=== PATIENT | female | born 1955 | race Caucasian/White ===

== ENCOUNTER → 2019-05-13 | Day surgery (SDC) | payer OTHER ==
--- NOTE | 2019-05-14 11:16 | PATH ---
Surgical Pathology Report Patient Name: LIVE PICKENS [facility]. Rec. #: [id number] /Age/Gender: 1955 (Age: 64) / F Account: [id number] Location: [facility] Taken: 05/13/2019 Received: 05/13/2019 Reported: 05/14/2019 Physicians: José Pearl M.D. Specimen(s) Received A: RIGHT BREAST SPECIMEN - WITH CALCIFICATIONS B: RIGHT BREAST SPECIMEN - WITHOUT CALCIFICATIONS Clinical History Nonpalpable lesion Mammographic findings: Suspicious Final Diagnosis A. BREAST, RIGHT, WITH CALCIFICATIONS, STEREOTACTIC CORE BIOPSY: BENIGN BREAST PARENCHYMA WITH STROMAL FIBROSIS, FOCAL USUAL DUCTAL HYPERPLASIA, AND ASSOCIATED MICROCALCIFICATIONS. B. BREAST, RIGHT, WITHOUT CALCIFICATIONS, STEREOTACTIC CORE BIOPSY: BENIGN BREAST PARENCHYMA WITH STROMAL FIBROSIS. Electronically Signed Stephanie Eason M.D. Gross Description A. Received in formalin labeled "right breast with calcifications," is a 2.2 x 2.1 x 0.3 cm aggregate of multiple bear-yellow, irregular to cylindrical portions of fibroadipose tissue. The formalin is filtered and the specimen is entirely submitted in one cassette. B. Received in formalin labeled "right breast without calcifications," is a 2.3 x 2.0 x 0.3 cm aggregate of multiple bear-yellow, irregular to cylindrical portions of fibroadipose tissue. The formalin is filtered and the specimen is entirely submitted in one cassette. Time to formalin fixation: 5 minutes Total formalin fixation time: Approximately 7 hours. /05/13/2019 saudi05/13/2019
== END | disposition home or self-care (01) ==
LOC: FMAMMOTONE 09:56
PROVIDERS: ATTEND Surgery
PROC: 0HBT3ZX Excision of Right Breast, Percutaneous Approach, Diagnostic (ICD-10-PCS; principal; 2019-05-13)
DX: N60.31 Fibrosclerosis of right breast (principal); N60.81 Other benign mammary dysplasias of right breast; N64.89 Other specified disorders of breast; R92.1 Mammographic calcification found on diagnostic imaging of breast
CPT/HCPCS: 19081; 87899; 88305-TC; A4648

== ENCOUNTER 2019-11-18 13:33 | Inpatient (IN) | payer OTHER ==
[2019-11-18 14:33] LABS: EOS % 3.2 % (0-4.5); HEMATOCRIT 35.9 % (32.4-45.2); HEMOGLOBIN 12.4 GM/dL (10.7-15.3); MCH 31.3 pg (25.7-33.7); MCHC 34.6 g/dl (32.0-36.0); MEAN CELL VOLUME 90.6 fl (80-96); MEAN PLT VOLUME 8.2 fl (7.5-11.1); MONO % 7.5 % (3.8-10.2); NEUT % 63.3 % (42.8-82.8); PLATELET COUNT 126 K/MM3 (134-434); RBC 3.97 M/mm3 (3.60-5.2); WHITE BLOOD COUNT 5.6 K/mm3 (4.0-10.0)
--- NOTE | 2019-11-18 14:47 | PDOC ---
History of Present Illness - General Chief Complaint: CVA/TIA Stated Complaint: CVA Time Seen by Provider: 11/18/19 13:51 - History of Present Illness Initial Comments: 11/18/19 15:14 The patient is a 64 year old female with a history of HTn, HLD, DM, CVA, Dementia who presents for evaluation of altered mental status. Per the patient' s NH, the patient's last known well was yesterday evening and awoke this morning more lethargic than usual. They noted the patient being more non- responsive and generally week and confused prompting her presentation to the ED for further evaluation. Per the patient's daughter, the patient is usually conversant. ROS is unobtainable due to the patient's mental status. tPA Exclusion checklist 3-4.5h - Time Elapsed Date last known well: 11/17/19 Time last known well: 21:00 Elaspsed time: Day(s) and 18 Hour(s) and 36 Minutes - Thrombolytic Therapy Candidate Is patient eligible for thrombolytic therapy: No - Ineligibility reason(s) Reasons No tPA given: Outside of window - delayed arrival NIH Stroke Scale - Last Known Well Date/Time & Onset Date Last Known Well: 11/17/19 Time Last Known Well: 21:00 - Initial Evaluation Level of consciousness: Alert Ask patient the month and their age: Both incorrect Ask patient to open & close eyes; make fist and let go: Both incorrect Best gaze (horizontal eye movement): Normal Visual field testing: No visual field loss Facial paresis (Show teeth/raise eyebrows/close eyes tight): Normal symmetrical movement Motor Function: Left Arm: Normal Motor Function: Right Arm: Normal (extends arm 90 (or 45) degrees for 10 seconds without drift Motor Function: Left Leg: Normal (extends leg 30 degrees for 5 seconds without drift) Motor Function: Right Leg: Normal (extends leg 30 degrees for 5 seconds without drift) Limb Ataxia: No ataxia Sensory(Use pinprick test arms,legs,trunk,face/side to side): Normal Best language (Describe picture, name items, read sentences): No Aphasia Dysarthria (read several words): Normal articulation Extinction and Inattention: No abnormality - Total Score NIH Stroke Scale Score: 4 Past History - Past Medical History Allergies/Adverse Reactions: Allergies Allergy/AdvReac Type Severity Reaction Status Date / Time gabapentin Allergy Verified 11/18/19 13:41 Gadolinium-Containing Allergy Verified 11/18/19 13:41 Contrast Medi shellfish derived Allergy Verified 11/18/19 13:41 Anemia: Yes (IRON) Cardiac Disorders: Yes COPD: No Diabetes: Yes GI Disorders: Yes (GERD, CONSTIPATUION) HTN: Yes Psychiatric Problems: Yes - Psycho Social/Smoking Cessation Hx Smoking History: Smoker current status UNK Have you smoked in the past 12 months: No Information on smoking cessation initiated: No Hx Alcohol Use: No Drug/Substance Use Hx: No Review of Systems - Review of Systems Able to Perform ROS?: No (AMS) *Physical Exam - Vital Signs Last Vital Signs Temp Pulse Resp BP Pulse Ox 98.0 F 69 13 116/73 99 11/18/19 13:35 11/18/19 13:35 11/18/19 13:35 11/18/19 13:35 11/18/19 13:35 - Physical Exam 11/18/19 15:17 General Appearance: Nourished. No Apparent Distress HEENT: EOMI, ANA. No Pharyngeal Erythema, Tonsillar Exudate, Tonsillar Erythema Neck: No Cervical Lymphadenopathy Respiratory/Chest: Lungs Clear, Normal Breath Sounds. No Crackles, Rales, Rhonchi, Wheezing Cardiovascular: Regular Rhythm, Regular Rate. No Murmur, Gallops, Rubs Gastrointestinal/Abdominal: Normal Bowel Sounds, Soft. No Guarding, Rebound, Tenderness Musculoskeletal: No CVA Tenderness Extremity: Normal Capillary Refill Integumentary: Normal Color, Dry, Warm Neurologic: Alert, Moving all extremities, Moaning on exam, unable to follow commands. Responds to painful stimuli. ED Treatment Course - LABORATORY CBC & Chemistry Diagram: 11/18/19 14:13 11/18/19 14:13 - ADDITIONAL ORDERS Additional order review: 11/18/19 14:13 RBC 3.97 MCV 90.6 MCHC 34.6 RDW 14.0 MPV 8.2 Neutrophils % 63.3 Lymphocytes % 25.0 Monocytes % 7.5 Eosinophils % 3.2 Basophils % 1.0 - RADIOLOGY Radiology Studies Ordered: Category Date Time Status HEAD CT (STROKE) [CT] Stat CT Scan 11/18/19 13:40 Completed CHEST X-RAY PORTABLE* [RAD] Stat Radiology 11/18/19 13:40 Completed Medical Decision Making - Medical Decision Making 11/18/19 15:23 The patient is a 64 year old female with a history of HTn, HLD, DM, CVA, Dementia who presents for evaluation of altered mental status. Given the patient's history and physical exam, we will obtain a cbc, cmp, troponin, ua, chest plain film, head CT to evaluate further. We will consult with neurology and continue to monitor and reassess while here in the ED. 11/18/19 15:36 CBC, cmp, troponin were unremarkable. Head CT did not demonstrate any acute process as read by our radiologist. Chest plain film did not demonstrate any acute process as read by our radiologist. We discussed the case with Dr. Cortez with neurology who has been made aware of the patient and will evaluate. The patient will require admission for further monitoring and management. Discharge - Discharge Information Problems reviewed: Yes Clinical Impression/Diagnosis: Transient ischemic attack Altered mental status Qualifiers: Altered mental status type: unspecified Qualified Code(s): R41.82 - Altered mental status, unspecified Condition: Stable - Admission Yes - Follow up/Referral Referrals: Cheikh Uriarte [Primary Care Provider] - - Patient Discharge Instructions - Post Discharge Activity
[2019-11-18 15:00] LABS: INR 1.18 (0.83-1.09)
[2019-11-18 15:03] LABS: ACTIVATED PTT 35.5 SECONDS (25.2-36.5)
[2019-11-18 15:06] LABS: ALBUMIN 3.5 g/dl (3.4-5.0); BILIRUBIN,TOTAL 0.8 mg/dL (0.2-1); BLOOD UREA NITROGEN 14.1 mg/dL (7-18); CALCIUM 9.6 mg/dL (8.5-10.1); CREATININE 0.7 mg/dL (0.55-1.3); POTASSIUM 3.9 mmol/L (3.5-5.1); TOT PROT 7.3 g/dl (6.4-8.2)
--- NOTE | 2019-11-18 15:15 | EKG ---
Test Reason : Blood Pressure : / mmHG Vent. Rate : 069 BPM Atrial Rate : 069 BPM P-R Int : 148 ms QRS Dur : 070 ms QT Int : 408 ms P-R-T Axes : 012 061 031 degrees QTc Int : 437 ms POOR DATA QUALITY, INTERPRETATION MAY BE ADVERSELY AFFECTED NORMAL SINUS RHYTHM NORMAL ECG NO PREVIOUS ECGS AVAILABLE Confirmed by DHRUV MORALES MD ([id number]) on 11/18/2019 3:14:29 PM Referred By: Confirmed By:DHRUV MORALES MD
--- NOTE | 2019-11-18 15:21 | PDOC ---
Documentation entered by Alma Reno SCRIBE, acting as scribe for Boni Garcia MD. Boni Garcia MD: This documentation has been prepared by the Shadia antoine Brenda, SCRIBE, under my direction and personally reviewed by me in its entirety. I confirm that the documentation accurately reflects all work, treatment, procedures, and medical decision making performed by me. Attending Attestation - Resident Resident Name: Adolfo Olmos - ED Attending Attestation I have performed the following: I have examined & evaluated the patient, The case was reviewed & discussed with the resident, I agree w/resident's findings & plan, Exceptions are as noted - HPI HPI: 11/18/19 15:49 64 F with h/o HTN, HLD, DM, CVA, dementia, presenting with AMS. Pt's last known normal was last night before bedtime. This morning, pt was found to be lethargic and confused. At physical therapy today, she could not participate because she would not follow commands. Pt unable to contribute any history herself. Per pt's daughter, pt is typically awake, alert, and conversant at baseline. - Physicial Exam PE: 11/18/19 15:50 See resident exam - Medical Decision Making 11/18/19 15:51 64 F with AMS. Will evaluate for infectious/metabolic process. Pt afebrile without any infectious signs or symptoms. Possible CVA. Pt is outside tPA window. - head CT - Labs - CXR, UA - Admit NIH Stroke Scale - Last Known Well Date/Time & Onset Date Last Known Well: 11/17/19 Time Last Known Well: 22:00 - Initial Evaluation Level of consciousness: Alert Ask patient the month and their age: Both incorrect Ask patient to open & close eyes; make fist and let go: Both incorrect Best gaze (horizontal eye movement): Normal Visual field testing: No visual field loss Facial paresis (Show teeth/raise eyebrows/close eyes tight): Normal symmetrical movement Motor Function: Left Arm: Normal Motor Function: Right Arm: Normal (extends arm 90 (or 45) degrees for 10 seconds without drift Motor Function: Left Leg: Normal (extends leg 30 degrees for 5 seconds without drift) Motor Function: Right Leg: Normal (extends leg 30 degrees for 5 seconds without drift) Limb Ataxia: No ataxia Sensory(Use pinprick test arms,legs,trunk,face/side to side): Normal Best language (Describe picture, name items, read sentences): No Aphasia Dysarthria (read several words): Normal articulation Extinction and Inattention: No abnormality - Total Score NIH Stroke Scale Score: 4
[2019-11-18 16:06] LABS: PH,URINE 7.5 (5.0-8.0); URINE APPEARANCE CLEAR; URINE BILIRUBIN NEGATIVE (NEGATIVE); URINE COLOR YELLOW; URINE GLUCOSE (UA) NEGATIVE (NEGATIVE); URINE KETONE NEGATIVE (NEGATIVE); URINE LEUK ESTERASE NEGATIVE (NEGATIVE); URINE NITRITE NEGATIVE (NEGATIVE); URINE PROTEIN NEGATIVE (NEGATIVE)
[2019-11-19 00:06] VITALS: BMI 32.9
[2019-11-19 07:03] LABS: HEMATOCRIT 31.9 % (32.4-45.2); HEMOGLOBIN 11.3 GM/dL (10.7-15.3); MCH 31.6 pg (25.7-33.7); MCHC 35.4 g/dl (32.0-36.0); MEAN CELL VOLUME 89.2 fl (80-96); MEAN PLT VOLUME 8.6 fl (7.5-11.1); PLATELET COUNT 113 K/MM3 (134-434); RBC 3.58 M/mm3 (3.60-5.2); RDW 13.8 % (11.6-15.6); WHITE BLOOD COUNT 5.1 K/mm3 (4.0-10.0)
[2019-11-19 07:42] LABS: BLOOD UREA NITROGEN 17.3 mg/dL (7-18); CALCIUM 9.2 mg/dL (8.5-10.1); CREATININE 0.7 mg/dL (0.55-1.3); MAGNESIUM 1.8 mg/dL (1.8-2.4); PHOSPHOROUS 3.6 mg/dL (2.5-4.9); POTASSIUM 3.6 mmol/L (3.5-5.1)
[2019-11-19] MEDS: HEPARIN NA (PORCINE) 5,000 UNITS/ML 1ML VIAL SQ SCH ×2 (10:14→22:24)
--- NOTE | 2019-11-19 11:20 | HP ---
Admitting History and Physical - Primary Care Physician PCP: Spencer Lacey - Admission Chief Complaint: AMS History of Present Illness: - History of Present Illness Initial Comments: 11/18/19 15:14 The patient is a 64 year old female with a history of HTn, HLD, DM, CVA, Dementia who presents for evaluation of altered mental status. Per the patient' s NH, the patient's last known well was yesterday evening and awoke this morning more lethargic than usual. They noted the patient being more non- responsive and generally week and confused prompting her presentation to the ED for further evaluation. Per the patient's daughter, the patient is usually conversant. ROS is unobtainable due to the patient's mental status. Pt examined in Telemetry Awake now- does not remember why she is in the hospital She knows who the president is, year is 2001 No complaints Able to move all extremities walks with a walker at baseline spoke with sister she had similar history couple of months ago - she was in [facility] at that time . Told the sister she had a mini stroke History Source: Patient, Transfer Record Limitations to Obtaining History: Poor Historian - Past Medical History Cardiovascular: Yes: HTN, Hyperlipdemia Hepatobiliary: Yes: Hepatitis C (s/p TIPS) ...: No Psych: Yes: Other (dementia) Endocrine: Yes: Diabetes Mellitus - Advance Directives Advance Directives: Yes: DNR - Smoking History Smoking history: Smoker current status UNK Have you smoked in the past 12 months: No - Alcohol/Substance Use Hx Alcohol Use: No Home Medications - Allergies Allergies/Adverse Reactions: Allergies Allergy/AdvReac Type Severity Reaction Status Date / Time gabapentin Allergy Verified 11/18/19 13:41 Gadolinium-Containing Allergy Verified 11/18/19 13:41 Contrast Medi shellfish derived Allergy Verified 11/18/19 13:41 - Home Medications Home Medications: Ambulatory Orders Acetaminophen 325 mg PO TID 11/18/19 Aripiprazole [Abilify] 20 mg PO DAILY 11/18/19 Atorvastatin Ca [Lipitor] 20 mg PO HS 11/18/19 Famotidine 20 mg PO DAILY 11/18/19 Insulin Glargine,Hum.rec.anlog [Basaglar Kwikpen U-100] 40 unit SQ DAILY Insulin Lispro [Admelog] 2 unit SQ TID 11/18/19 Melatonin 10 mg PO DAILY 11/18/19 Oseltamivir Phosphate [Tamiflu] 75 mg PO DAILY 11/18/19 Polyethylene Glycol 3350 [Miralax 119 gm Btl -] 19 gr PO DAILY 11/18/19 Quetiapine Fumarate [Seroquel -] 25 mg PO HS 11/18/19 Tamiflu - 75 mg PO DAILY 11/18/19 Review of Systems - Review of Systems Constitutional: reports: Lethargy. denies: Chills, Fever, Weakness Physical Examination Vital Signs: Vital Signs Temperature 98.7 F 11/19/19 10:00 Pulse Rate 64 11/19/19 10:00 Respiratory Rate 18 11/19/19 10:00 Blood Pressure 117/62 11/19/19 10:00 O2 Sat by Pulse Oximetry (%) 96 11/18/19 23:20 Constitutional: Yes: No Distress, Calm Cardiovascular: Yes: Regular Rate and Rhythm Respiratory: Yes: CTA Bilaterally Gastrointestinal: Yes: Normal Bowel Sounds, Soft, Abdomen, Obese. No: Tenderness Edema: No Neurological: Yes: Alert, Confusion. No: Numbness, Tremors ...Motor Strength: WNL Labs: CBC, BMP 11/19/19 05:40 11/19/19 05:40 Imaging - Results Chest X-ray: Image Reviewed (no infiltrate) Cat Scan: Report Reviewed (negative) EKG: Image Reviewed (NSR) Problem List - Problems (1) Altered mental status Code(s): R41.82 - ALTERED MENTAL STATUS, UNSPECIFIED Qualifiers: Altered mental status type: unspecified Qualified Code(s): R41.82 - Altered mental status, unspecified (2) Transient ischemic attack Code(s): G45.9 - TRANSIENT CEREBRAL ISCHEMIC ATTACK, UNSPECIFIED (3) Hep C w/o coma, chronic Code(s): B18.2 - CHRONIC VIRAL HEPATITIS C (4) Liver mass Code(s): R16.0 - HEPATOMEGALY, NOT ELSEWHERE CLASSIFIED Assessment/Plan PLAN Carotid doppler negative hold off psych meds h/o schizoaffective disorder Neurology consult Brain MRI and MRA ordered Pt had recent MRCP done here in [facility]-- shows possible liver mass- suspicious for HCC- she had AFP in NH - 2.6 GI consult check ammonia levels spoke with sister who is POA swallow eval PT eval
[2019-11-19] MEDS: ASPIRIN 81 MG CHEWABLE TABLETS PO SCH (11:46)
--- NOTE | 2019-11-19 11:46 | CONSULT ---
Admitting History and Physical - Primary Care Physician PCP: Catherine Alas - Admission History of Present Illness: 64 year old female with a history of HTn, HLD, DM, CVA, Dementia who presents for evaluation of altered mental status. Per the patient's NH, the patient's last known well was yesterday evening and awoke this morning more lethargic than usual. They noted the patient being more non-responsive and generally week and confused prompting her presentation to the ED for further evaluation.The patient is usually conversant. Selected Entries 11/18/19 11/18/19 11/18/19 13:35 14:30 17:00 Breakfast Temperature 98.0 F 98.0 F 97.8 F 11/18/19 11/19/19 11/19/19 23:00 02:00 06:00 Breakfast Temperature 98.1 F 97.9 F 98.2 F 11/19/19 11/19/19 10:00 11:07 Breakfast NPO Temperature 98.7 F Laboratory Tests 11/18/19 11/19/19 14:13 05:40 WBC 5.6 5.1 Pt's sister served as informant. Pt with h/o Bipolar disorder, had been admitted to [facility] in past, also with h/o sleep diorder, and drug abuse growing up. She is very impulsive, with falls in NH fromj getting up to fast. She has choked on solids and is observed meal time at [facility]. Pt on reg diet/no bread/thin liquids in NH History Source: Family Member, Medical Record Limitations to Obtaining History: Clinical Condition - Past Medical History ...: No - Advance Directives Advance Directives: Yes: DNR - Smoking History Smoking history: Smoker current status UNK Have you smoked in the past 12 months: No - Alcohol/Substance Use Hx Alcohol Use: No History - Admission Reason For Visit: TRANSIENT ISCHEMIC ATTACK,AMS - Diagnostics X-ray: Report Reviewed CT Scan: Report Reviewed MRI: Pending - General Mental Status: Alert and Oriented (errors but self corrects when questioned eg "[facility].... [facility]?"), Awake and Alert, Able to Follow Commands, Forgetful Attention: Intact Ability to Follow Directions: Good Head/Neck Control: Good - Hearing Hearing: Normal Hearing Aide: No With Patient: No Speech Evaluation - Communication Primary Language: NEPALI Communication: Yes: Within Normal Limits (back to baseline, spontraneous recovery), Simple Responses, Aphasia (upon admission, not speaking) - Speech Production Able to Make Needs Known: Yes: WNL Intelligibility: Yes: WNL - Speech Characteristics Voice Loudness: Normal Voice Pitch: Yes: Normal Voice Phonatory-based Quality: Yes: Normal Speech Pattern: Normal Speech Clarity: < 100% Nasal Resonance: Normal Articulation: Yes: Precise - Language/Auditory Comprehension Follows: Yes: 1 Stage Simple Commands Observation: Able to respond to yes/no queries: Yes, Yes/No Confusion: Yes, Benefits from Repetiton: Yes - Language/Verbal Expression Able to Respond to Simple Queries: Yes: WNL Able to Communicate Wants and Needs: Yes: WNL Functional Communication Status: Yes: WNL - Swallow Evaluation/Bedside Assessment Current Nutritional Intake: NPO Oral Secretions: Yes: WFL Dentition: Yes: Edentulous (lower), Dental Appliance Upper Facial Symmetry at Rest: Symmetrical Facial Symmetry on Retraction: Symmetrical Facial Movement: Controlled Jaw Position: Open at Rest Against Resistance Opening: Normal Against Resistance Closing: Normal Pucker Lips: Normal Smile: Normal Lingual Movement: Normal, Symmetric Lingual Speed of Movement: Normal Lingual Movement Strgth Against Opposition: Reduced Lingual Movement Characteristics: Normal Velopharyngeal Movement: Normal Laryngeal Elevation: WFL Laryngeal Movement: Able to Palpate Rate of Intake: Impulsive (Popped entire cracker in her mouth which I quickly recovered.) Bolus Size: Large Labial Seal: WFL Chewing: WFL (Labored mastication, slow oral movement, no lower dentition, does not masticate bolus fully) A-P Transit: WFL Pocketing: None Timing of Swallow: WFL Coughing/Throat Clear: No ((-) 3 oz water test) Change in Voice: No Recommendations - Speech Evaluation, Impression/Plan Impression: Language function suspected back to baseline. Labored mastication with h/o impulsive self feeding with choking incidents at NH - Disposition Discharge to: Jail Facility - Dysphagia Impressions/Plan Swallowing Skills: Impaired Dysphagia Impressions: Mild Impairment, Risk of Aspiration (choking risk on solids) *Silent aspiration: cannot be R/O at bedside Dysphagia Treatment Plan: Small Bites, Chin Tuck/Down, Clear Pocket Food, Trial Feedings, Safe Rate, 1/2 tsp. at a time, Elevate HOB during feed, Other ( Constant supervision with meals.Reduce bolus size and rate of intake) Recommendations: Modified Barium Swallow (if cough, congestion, fever) - Recommendations Diet Consistency: Other (Chopped diet, no bread, cracker,salad, apples, grapes) Liquids: Thin Liquids
[2019-11-19] MEDS: FAMOTIDINE 20 MG TABLET PO SCH (11:47)
--- NOTE | 2019-11-19 12:22 | CON.NEURO ---
Consult Consult Specialty:: Renard Referred by:: Bishop - History of Present Illness History of Present Illness: 64 years old right-handed female patient with multiple medical problems including high cholesterol hypertension history of dementia and questionable CVA in the past lives in a care home was found with altered sensorium patient came into the emergency room stroke protocol was initiated patient was not a candidate according to the emergency room for any thrombolyze his CAT scan of the head with mild motion artifact but did not reveal any evidence of acute pathology. Patient was admitted to telemetry for further treatment and management. Since admission according to the nursing staff patient with no seizure-like activity patient remains lethargic with difficulty cooperation with a history intake. Most of the history was obtained from the H&P and the transfer sheet and emergency room notes. No report of any recent travel no report of any recent head trauma. - History Source History Provided By: Medical Record Limitations to Obtaining History: Clinical Condition - Past Medical History ...: No - Alcohol/Substance Use Hx Alcohol Use: No - Smoking History Smoking history: Smoker current status UNK Have you smoked in the past 12 months: No Home Medications - Allergies Allergies/Adverse Reactions: Allergies Allergy/AdvReac Type Severity Reaction Status Date / Time gabapentin Allergy Verified 11/18/19 13:41 Gadolinium-Containing Allergy Verified 11/18/19 13:41 Contrast Medi shellfish derived Allergy Verified 11/18/19 13:41 - Home Medications Home Medications: Ambulatory Orders Acetaminophen 325 mg PO TID 11/18/19 Aripiprazole [Abilify] 20 mg PO DAILY 11/18/19 Atorvastatin Ca [Lipitor] 20 mg PO HS 11/18/19 Famotidine 20 mg PO DAILY 11/18/19 Insulin Glargine,Hum.rec.anlog [Basaglar Kwikpen U-100] 40 unit SQ DAILY Insulin Lispro [Admelog] 2 unit SQ TID 11/18/19 Melatonin 10 mg PO DAILY 11/18/19 Oseltamivir Phosphate [Tamiflu] 75 mg PO DAILY 11/18/19 Polyethylene Glycol 3350 [Miralax 119 gm Btl -] 19 gr PO DAILY 11/18/19 Quetiapine Fumarate [Seroquel -] 25 mg PO HS 11/18/19 Tamiflu - 75 mg PO DAILY 11/18/19 Family Medical History Family History: Unable to Obtain Review of Systems Unable to obtain ROS, reason: unable to obtain Physical Exam-Neuro Vital Signs: Vital Signs Temperature 98.7 F 11/19/19 10:00 Pulse Rate 64 11/19/19 10:00 Respiratory Rate 18 11/19/19 10:00 Blood Pressure 117/62 11/19/19 10:00 O2 Sat by Pulse Oximetry (%) 96 11/18/19 23:20 Constitutional: Yes: Well Nourished Neck: Yes: WNL Cardiovascular: Yes: WNL Labs: CBC, BMP 11/19/19 05:40 11/19/19 05:40 INR, PTT INR 1.18 (0.83-1.09) H 11/18/19 14:13 - Neuro Exam Level Of Consciousness: Yes: Alert, Obtunded Eyes: Yes: PERRLA Speech: Other Dominant Hand: Right Cranial Nerves II-XII Intact: Yes Gag: Present DTR's: 1+ Left Bicep, 1+ Right Bicep, 1+ Left Brachioradialis, 1+ Right Brachioradialis Response to light touch: Abnormal Response to pain prick: Abnormal Motor Strength: 2/5: Left Arm, Right Arm, Left Leg, Right Leg Imaging - Results Cat Scan: Image Reviewed Problem List - Problems (1) Altered mental status Assessment/Plan: altered mental status in a 64-year-old woman with history of prior CVA Exam is limited due to lack of cooperation Questionable toxic metabolic encephalopathy 1. Neuro checks every 1 hour. 2. Seizure precautions. 3. Tight blood sugar control. 4. MRI of the brain with no contrast. 5. Follow-up with speech and swallow 6. Physical therapy Thank you very much for allowing me to be part of this patient's neurological care. Stu Glynn M.D. Code(s): R41.82 - ALTERED MENTAL STATUS, UNSPECIFIED Qualifiers: Altered mental status type: unspecified Qualified Code(s): R41.82 - Altered mental status, unspecified
--- NOTE | 2019-11-19 15:29 | ECHO ---
Name: LIVE PICKENS Exam:Adult Echocardiogram Study Date: 11/19/2019 01:57 PM Age: 64 yrs Reason For Study: CVA Height: 57 in Weight: 152 lb BSA: 1.6 m2 MMode/2D Measurements & Calculations IVSd: 0.91 cm Ao root diam: 2.3 cm LVIDd: 4.1 cm LA dimension: 3.5 cm LVIDs: 2.4 cm LVPWd: 0.97 cm EDV(Teich): 73.1 ml LVOT diam: 2.0 cm ESV(Teich): 19.9 ml Doppler Measurements & Calculations MV E max emerson: 119.0 cm/sec Ao V2 max: 177.8 cm/sec MV A max emerson: 80.5 cm/sec Ao max P.6 mmHg MV E/A: 1.5 MV dec time: 0.19 sec DL(V,D): 2.2 cm2 LV V1 max P.1 mmHg TR max emerson: 243.0 cm/sec LV V1 max: 123.2 cm/sec TR max P.8 mmHg PA V2 max: 141.2 cm/sec Med Peak E' Emerson: 8.8 cm/sec PA max P.0 mmHg Med E/e': 13.5 Lat Peak E' Emerson: 8.6 cm/sec Lat E/e': 13.8 Procedure A complete two-dimensional transthoracic echocardiogram was performed (2D, M-mode, Doppler and color flow Doppler). Left Ventricle The left ventricular size, thickness and function are normal. The left ventricular ejection fraction is normal. Ejection Fraction = 60-65%. The left ventricular wall motion is normal. Right Ventricle The right ventricle is normal in size and function. Atria Normal left and right atrial size and function. Mitral Valve There is no mitral regurgitation noted. Tricuspid Valve There is mild tricuspid regurgitation. Right ventricular systolic pressure is normal. Aortic Valve The aortic valve is trileaflet. No hemodynamically significant valvular aortic stenosis. No aortic regurgitation is present. Pulmonic Valve There is no pulmonic valvular regurgitation. Great Vessels The aortic root is normal size. Pericardium/Pleura There is no pericardial effusion. Interpretation Summary The left ventricular size, thickness and function are normal The right ventricle is normal in size and function. There is mild tricuspid regurgitation. MD Dwayne Winkler 11/19/2019 03:28 PM
[2019-11-19] MEDS: INSULIN SLIDING SCALE (NOVOLOG) 1 VIAL SQ SCH (16:36)
[2019-11-19] MEDS ORDERED: LACTULOSE 20 GM/30 ML UDC (FOR ORAL USE ONLY) PO PRN (19:30)
[2019-11-19] MEDS ORDERED: ATORVASTATIN CA 20 MG TABLET (FP) PO SCH (22:00)
[2019-11-20] MEDS: INSULIN SLIDING SCALE (NOVOLOG) 1 VIAL SQ SCH ×2 (06:04→11:36)
[2019-11-20 06:10] VITALS: PULSE 64
[2019-11-20] MEDS ORDERED: INSULIN (NOVOLOG) ASPART 100 UNITS/ML 10ML VIAL ONE (06:54)
[2019-11-20] MEDS ORDERED: INSULIN (LEVEMIR) 100 UNITS/ML UNITS SQ ONE (06:54)
[2019-11-20] MEDS: ASPIRIN 81 MG CHEWABLE TABLETS PO SCH (09:22)
[2019-11-20] MEDS: HEPARIN NA (PORCINE) 5,000 UNITS/ML 1ML VIAL SQ SCH (09:22)
--- NOTE | 2019-11-20 09:22 | PN ---
Progress Note (short form) - Note Progress Note: Pt seen/ examined chart reviewed awake/ comfortable No distress denies pain afebrile Vital Signs Temp 97.9 F 11/20/19 06:00 Pulse 64 11/20/19 06:00 Resp 18 11/20/19 06:00 BP 112/52 L 11/20/19 06:00 Pulse Ox 96 11/19/19 21:00 Intake & Output 11/19/19 11/19/19 11/20/19 11:59 23:59 11:59 Intake Total 10 330 150 Output Total 0 Balance 10 330 150 Intake: IV 10 saline lock 10 Oral 0 330 150 Output: Urine 0 Void 0 Other: Voiding Method Diaper Diaper # Unmeasured Voids Void 2 1 2 Bowel Movement No Active Medications Aspirin (Asa -) 81 mg PO DAILY [facility] Last Admin: 11/19/19 11:46 Dose: 81 mg Atorvastatin Calcium (Lipitor -) 20 mg PO HS [facility] Last Admin: 11/19/19 22:24 Dose: 20 mg Famotidine (Pepcid -) 20 mg PO DAILY [facility] Last Admin: 11/19/19 11:47 Dose: 20 mg Heparin Sodium (Porcine) (Heparin -) 5,000 unit SQ BID [facility] Last Admin: 11/19/19 22:24 Dose: 5,000 unit Insulin Aspart (Novolog Vial Sliding Scale -) 1 vial SQ TIDAC [facility]; Protocol Last Admin: 11/20/19 06:04 Dose: 2 units Lactulose (Cephulac (Oral Use)) 20 gm PO TID [facility] CBC, BMP 11/19/19 05:40 11/19/19 05:40 Hepatic Panel Total Bilirubin 0.8 mg/dL (0.2-1) 11/18/19 14:13 AST 34 U/L (15-37) 11/18/19 14:13 ALT 34 U/L (13-61) 11/18/19 14:13 Alkaline Phosphatase 133 U/L (45-117) H 11/18/19 14:13 Albumin 3.5 g/dl (3.4-5.0) 11/18/19 14:13 MRCP-- Noted -- S/p TIPS. GI f/u Lactulose on daily basis
[2019-11-20] MEDS: FAMOTIDINE 20 MG TABLET PO SCH (09:23)
--- NOTE | 2019-11-20 09:29 | DS ---
Physical Examination Vital Signs: Vital Signs Temperature 97.9 F 11/20/19 06:00 Pulse Rate 64 11/20/19 06:00 Respiratory Rate 18 11/20/19 06:00 Blood Pressure 112/52 L 11/20/19 06:00 O2 Sat by Pulse Oximetry (%) 96 11/19/19 21:00 Labs: CBC, BMP 11/19/19 05:40 11/19/19 05:40 Discharge Summary Problems reviewed: Yes Reason For Visit: TRANSIENT ISCHEMIC ATTACK,AMS Current Active Problems Altered mental status (Acute) Hep C w/o coma, chronic (Acute) Liver mass (Acute) Transient ischemic attack (Acute) Condition: Stable - Instructions Referrals: Cheikh Uriarte [Primary Care Provider] - - Home Medications Comprehensive Discharge Medication List: Ambulatory Orders Aripiprazole [Abilify] 20 mg PO DAILY 11/18/19 Atorvastatin Ca [Lipitor] 20 mg PO HS 11/18/19 Famotidine 20 mg PO DAILY 11/18/19 Insulin Glargine,Hum.rec.anlog [Sirena Chauhan U-100] 40 unit SQ DAILY Insulin Lispro [Admelog] 2 unit SQ TID 11/18/19 Melatonin 10 mg PO DAILY 11/18/19 Oseltamivir Phosphate [Tamiflu] 75 mg PO DAILY 11/18/19 Polyethylene Glycol 3350 [Miralax 119 gm Btl -] 19 gr PO DAILY 11/18/19 Quetiapine Fumarate [Seroquel -] 25 mg PO HS 11/18/19 Lactulose (Oral Use) [Cephulac -] 20 gm PO TID udc 11/20/19 XIFAXAN 550 MG BID
[2019-11-20] MEDS ORDERED: LACTULOSE 20 GM/30 ML UDC (FOR ORAL USE ONLY) PO SCH ×2 (09:30→14:00)
--- NOTE | 2019-11-20 09:40 | CON.GI ---
Consult Consult Specialty:: GI Referred by:: Dr. Catherine Alas Reason for Consultation:: Liver lesion and h/o TIPS - History of Present Illness Chief Complaint: Confusion History of Present Illness: 64F admitted from [place] for evaluation of lethargy and confusion. She has a history of Heb C cirrhosis (treated) and recent CVA 06/19. Recent hep C PCR was negative 10/20. She was seen in office once 10/20. Old records were given to me by her sister: 01/19/11: path report presumably from an EGD revealed a smooth muscle lesion: ? leiomyoma or GIST. 07/06/11 Path Report: pyloric tumor negative for tumor, liver biopsy c/w cirrhosis, stomach, excision = Lipoma. 12/31/11 note from [facility]: aludes to TIPS being perfomred secondary to bleed. 08/10/12: Note from [facility]: Referred to a wrap yarn sorter Rigoberto Alvares. CT A/P 11/13 ( indication was rising AFP): cirrhosis, gastric varices, gallstone, TIPS. She had an MRI this month that revealed a right hepatic lobe 1.7cm mass suspicious for HCC by radiographic appearance. She currently denies any focal GI complaints. - History Source History Provided By: Medical Record - Past Medical History Cardio/Vascular: Yes: HTN, Hyperlipdemia Gastrointestinal: Yes: Constipation Hepatobiliary: Yes: Cirrhosis, Hepatitis C (s/p TIPS) ...: No Psych: Yes: Schizophrenia, Other (dementia) Endocrine: Yes: Diabetes Mellitus - Past Surgical History Additional Surgical History: resection of gastric mass (? if initially thought to be a smooth muscle tumor. path revealed a lipoma), TIPS - Alcohol/Substance Use Hx Alcohol Use: No History of Substance Use: reports: Cocaine (ex cocaine use 15+ years prior) - Smoking History Smoking history: Never smoked Have you smoked in the past 12 months: No - Social History Usual Living Arrangement: Alf ADL: Support Services Place of : [facility] History of Recent Travel: No Home Medications - Allergies Allergies/Adverse Reactions: Allergies Allergy/AdvReac Type Severity Reaction Status Date / Time gabapentin Allergy Verified 11/18/19 13:41 Gadolinium-Containing Allergy Verified 11/18/19 13:41 Contrast Medi shellfish derived Allergy Verified 11/18/19 13:41 - Home Medications Home Medications: Ambulatory Orders Aripiprazole [Abilify] 20 mg PO DAILY 11/18/19 Atorvastatin Ca [Lipitor] 20 mg PO HS 11/18/19 Famotidine 20 mg PO DAILY 11/18/19 Insulin Glargine,Hum.rec.anlog [Basaglar Kwikpen U-100] 40 unit SQ DAILY Insulin Lispro [Admelog] 2 unit SQ TID 11/18/19 Melatonin 10 mg PO DAILY 11/18/19 Oseltamivir Phosphate [Tamiflu] 75 mg PO DAILY 11/18/19 Polyethylene Glycol 3350 [Miralax 119 gm Btl -] 19 gr PO DAILY 11/18/19 Quetiapine Fumarate [Seroquel -] 25 mg PO HS 11/18/19 Lactulose (Oral Use) [Cephulac -] 20 gm PO TID udc 11/20/19 Rifaximin [Xifaxan] 550 mg PO BID #30 tablet 11/20/19 Family Medical History Family Hx Gastrointestinal Disorder: Father (: alcoholic / hep C cirrhosis) Family Hx Nuerologic Problems: Mother (: hydrocephalus) Other Family History: 2 sisters, 1 brother: healthy Review of Systems - Review of Systems Constitutional: denies: Chills Cardiovascular: denies: Chest Pain Respiratory: denies: SOB Gastrointestinal: reports: Constipation. denies: Abdominal Pain, Melena, Rectal Bleeding, Vomiting Physical Exam-GI Vital Signs: Vital Signs Temperature 97.9 F 11/20/19 06:00 Pulse Rate 64 11/20/19 06:00 Respiratory Rate 18 11/20/19 06:00 Blood Pressure 112/52 L 11/20/19 06:00 O2 Sat by Pulse Oximetry (%) 96 11/19/19 21:00 Constitutional: Yes: Calm Eyes: No: Sclera Icterus Cardiovascular: Yes: Regular Rate and Rhythm, Murmur Respiratory: Yes: CTA Bilaterally Gastrointestinal Inspection: Yes: Scars (mid upper abdominal surgical scar) ...Auscultate: Yes: Normoactive Bowel Sounds ...Palpate: Yes: Soft. No: Hepatomegaly, Splenomegaly, Tenderness ...Percussion: No: Tympanitic Edema: No (No LE edema) Neurological: Yes: Alert, Oriented (x person). No: [facility] Labs: CBC, BMP 11/19/19 05:40 11/19/19 05:40 INR, PTT INR 1.18 (0.83-1.09) H 11/18/19 14:13 Hepatic Panel Total Bilirubin 0.8 mg/dL (0.2-1) 11/18/19 14:13 AST 34 U/L (15-37) 11/18/19 14:13 ALT 34 U/L (13-61) 11/18/19 14:13 Alkaline Phosphatase 133 U/L (45-117) H 11/18/19 14:13 Albumin 3.5 g/dl (3.4-5.0) 11/18/19 14:13 Problem List - Problems (1) Cirrhosis Assessment/Plan: Suspected HCV cirrhosis: Sequelae of variceal bleeding, requiring TIPS in the past, suspected 1.7cm HCC now and confusion. Unclear if confusion is related Should be referred to a liver center when acute issues are resolved to assess TIPS, persistent gastric varices and suspected HCC. Unclear if confusion attributable to just hepatic encephaopathy. Added rifaximin. Increase lactulose to 20g four times daily. Titrate for 3-4 loose BM' s per day. neurology evaluation given confusion and recent diagnosis of CVA Code(s): K74.60 - UNSPECIFIED CIRRHOSIS OF LIVER
[2019-11-20] MEDS ORDERED: RIFAXIMIN 550 MG TABLET (UD) PO SCH (10:00)
[2019-11-20] MEDS ORDERED: PNEUMOC 13-VAL CONJ-DIP CRM/PF 0.5 ML DISP.SYRIN IM ONE (10:14)
[2019-11-20] MEDS ORDERED: PNEUMOCOCCAL 23 VACCINE 0.5 ML VIAL IM ONE (10:45)
--- NOTE | 2019-11-20 10:49 | PN ---
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
[2019-11-20 11:21] VITALS: BP 110/61; TEMP 98.1
[2019-11-20] MEDS ORDERED: PT OWN MED DRAWER 7, Y5N ONE (12:47)
== END 2019-11-20 13:15 | DRG 279 ==
LOC: JER 13:33 → JERBED 15:38 → J4W 23:05
PROVIDERS: ADMIT Internal Medicine; ATTEND Internal Medicine
DX: K72.90 Hepatic failure, unspecified without coma (principal); G45.9 Transient cerebral ischemic attack, unspecified; E11.9 Type 2 diabetes mellitus without complications; I10 Essential (primary) hypertension; E78.5 Hyperlipidemia, unspecified; F03.90 Unspecified dementia, unspecified severity, without behavioral disturbance, psychotic disturbance, mood disturbance, and anxiety; R29.704 NIHSS score 4; D50.9 Iron deficiency anemia, unspecified; K59.09 Other constipation; K21.9 Gastro-esophageal reflux disease without esophagitis; R41.82 Altered mental status, unspecified; B18.2 Chronic viral hepatitis C; K74.60 Unspecified cirrhosis of liver; F31.89 Other bipolar disorder; E66.9 Obesity, unspecified; Z68.32 Body mass index [BMI] 32.0-32.9, adult; F20.9 Schizophrenia, unspecified; R16.0 Hepatomegaly, not elsewhere classified
CPT/HCPCS: 36415; 70450-TC; 70544-TC; 70551-TC; 71045-TC-FY; 80048; 80053; 81003; 82140; 82465; 82550; 82553; 82962; 83718; 83721; 83735; 84100; 84478; 84484; 85025; 85027; 85610; 85651; 85730; 86850; 86900; 86901; 90732; 93005; 93010; 93306-TC; 93880-TC; 97161-GP; 99285-25; G0009; J1644

== ENCOUNTER → 2020-11-29 | Day surgery (SDC) | payer OTHER ==
[2020-11-29 08:13] VITALS: BMI 32.1
[2020-11-29 11:08] LABS: HEMATOCRIT 31.6 % (32.4-45.2); HEMOGLOBIN 11.1 GM/dL (10.7-15.3); MCH 32.8 pg (25.7-33.7); MCHC 35.1 g/dl (32.0-36.0); MEAN CELL VOLUME 93.4 fl (80-96); MEAN PLT VOLUME 8.3 fl (7.5-11.1); PLATELET COUNT 119 K/MM3 (134-434); RBC 3.39 M/mm3 (3.60-5.2); WHITE BLOOD COUNT 5.2 K/mm3 (4.0-10.0)
[2020-11-29 11:18] LABS: INR 1.18 (0.83-1.09); PROTHROMBIN TIME (PATIENT) 14.5 SEC (9.7-13.0)
[2020-11-29 11:33] LABS: POTASSIUM 3.9 mmol/L (3.5-5.1)
[2020-11-29 11:34] LABS: CALCIUM 9.3 mg/dL (8.5-10.1)
[2020-11-29 11:35] LABS: BLOOD UREA NITROGEN 12.1 mg/dL (7-18)
[2020-11-29 11:38] LABS: CREATININE 0.7 mg/dL (0.55-1.3)
[2020-11-29 12:22] VITALS: TEMP 97.5
[2020-11-29 13:14] VITALS: BP 110/63; PULSE 60
== END | disposition home or self-care (01) ==
LOC: JASU-ENDO 04:38
PROVIDERS: ATTEND Internal Medicine Gastroenterology
PROC: 0DJ08ZZ Inspection of Upper Intestinal Tract, Via Natural or Artificial Opening Endoscopic (ICD-10-PCS; principal; 2020-11-29 09:00)
DX: I86.4 Gastric varices (principal)
CPT/HCPCS: 36415; 80048; 82962; 85027; 85610

== ENCOUNTER 2021-04-11 04:18 | Day surgery (SDC) | payer OTHER ==
[2021-04-05 16:11] VITALS: BMI 34.4
[2021-04-11 10:13] LABS: HEMATOCRIT 38.1 % (32.4-45.2); HEMOGLOBIN 13.4 GM/dL (10.7-15.3); MCHC 35.2 g/dl (32.0-36.0); MEAN CELL VOLUME 93.7 fl (80-96); MEAN PLT VOLUME 8.3 fl (7.5-11.1); PLATELET COUNT 126 K/MM3 (134-434); RBC 4.07 M/mm3 (3.60-5.2); RDW 13.9 % (11.6-15.6); WHITE BLOOD COUNT 6.5 K/mm3 (4.0-10.0)
[2021-04-11 10:23] LABS: INR 1.62 (0.83-1.09); PROTHROMBIN TIME (PATIENT) 19.3 SEC (9.7-13.0)
[2021-04-11 10:31] LABS: CALCIUM 8.8 mg/dL (8.5-10.1)
[2021-04-11 10:32] LABS: ALBUMIN 3.4 g/dl (3.4-5.0); BLOOD UREA NITROGEN 7.1 mg/dL (7-18)
[2021-04-11 10:35] LABS: CREATININE 0.7 mg/dL (0.55-1.3)
[2021-04-11 10:36] LABS: BILIRUBIN,TOTAL 1.8 mg/dL (0.2-1); TOT PROT 6.6 g/dl (6.4-8.2)
[2021-04-11 13:34] VITALS: BP 104/64; PULSE 63; TEMP 96.8
== END 2021-04-11 13:20 | disposition hospice, home (50) ==
LOC: JASU-ENDO 04:18
PROVIDERS: ATTEND Internal Medicine Gastroenterology
PROC: 0DBN8ZX Excision of Sigmoid Colon, Via Natural or Artificial Opening Endoscopic, Diagnostic (ICD-10-PCS; 2021-04-11)
PROC: 0DBP8ZX Excision of Rectum, Via Natural or Artificial Opening Endoscopic, Diagnostic (ICD-10-PCS; 2021-04-11)
PROC: 0DBH8ZX Excision of Cecum, Via Natural or Artificial Opening Endoscopic, Diagnostic (ICD-10-PCS; principal; 2021-04-11 08:00)
DX: Z12.11 Encounter for screening for malignant neoplasm of colon (principal); D12.5 Benign neoplasm of sigmoid colon; K63.5 Polyp of colon; K62.1 Rectal polyp; K63.89 Other specified diseases of intestine; K64.8 Other hemorrhoids; D64.9 Anemia, unspecified
CPT/HCPCS: 36415; 80053; 82962; 85027; 85610; 86850; 86900; 86901; 88305-TC

== ENCOUNTER 2023-10-07 11:10 | Observation (INO) | payer MEDICARE, OTHER ==
[2023-10-07] MEDS ORDERED: SODIUM CHLORIDE 0.9% 500 ML INFUS.BAG IV ONE (12:21)
[2023-10-07 12:35] LABS: EOS % 3.2 % (0-4.5); HEMATOCRIT 34.1 % (32.4-45.2); HEMOGLOBIN 11.9 GM/dL (10.7-15.3); LYMPH % 19.3 % (8-40); MCH 32.8 pg (25.7-33.7); MCHC 34.8 g/dl (32.0-36.0); MEAN CELL VOLUME 94.2 fl (80-96); MEAN PLT VOLUME 7.8 fl (7.5-11.1); MONO % 10.7 % (3.8-10.2); NEUT % 65.8 % (42.8-82.8); PLATELET COUNT 124 10^3/uL (134-434); RBC 3.62 M/mm3 (3.60-5.2); RDW 14.3 % (11.6-15.6); WHITE BLOOD COUNT 5.2 K/mm3 (4.0-10.0)
[2023-10-07 12:40] LABS: INR 1.15 (0.83-1.09); PROTHROMBIN TIME (PATIENT) 13.3 SEC (9.7-13.0)
[2023-10-07 12:42] LABS: ACTIVATED PTT 31.4 SECONDS (25.2-36.5)
[2023-10-07 12:56] LABS: POTASSIUM 4.2 mmol/L (3.5-5.1)
[2023-10-07 12:59] LABS: ALBUMIN 3.1 g/dl (3.4-5.0); BLOOD UREA NITROGEN 17.7 mg/dL (7-18); CALCIUM 9.6 mg/dL (8.5-10.1); MAGNESIUM 2.3 mg/dL (1.8-2.4)
[2023-10-07 13:02] LABS: CREATININE 0.9 mg/dL (0.55-1.3)
[2023-10-07 13:04] LABS: BILIRUBIN,TOTAL 1.2 mg/dL (0.2-1); TOT PROT 6.3 g/dl (6.4-8.2)
[2023-10-07 13:35] LABS: EPI CELLS 2 /uL (0-25.1); HYALINE CASTS 0 /uL (0-3.1); URINE APPEARANCE CLEAR; URINE BACTERIA 48 /uL (0-1359); URINE BILIRUBIN NEGATIVE (NEGATIVE); URINE COLOR YELLOW; URINE GLUCOSE (UA) NEGATIVE (NEGATIVE); URINE KETONE NEGATIVE (NEGATIVE); URINE LEUK ESTERASE TRACE (NEGATIVE); URINE NITRITE NEGATIVE (NEGATIVE); URINE PROTEIN NEGATIVE (NEGATIVE); URINE RBC 12 /uL (0-23.9); URINE WBC 2 /uL (0-25.8)
[2023-10-07] MEDS: INSULIN SLIDING SCALE (NOVOLOG) 1 VIAL SQ SCH (22:45)
[2023-10-07] MEDS: ATORVASTATIN CA 20 MG TABLET (FP) PO SCH (22:46)
[2023-10-07] MEDS: RIFAXIMIN 550 MG TABLET PO SCH (22:46)
[2023-10-07] MEDS: HEPARIN NA (PORCINE) 5,000 UNITS/ML 1ML VIAL SQ SCH (22:46)
[2023-10-07] MEDS: SODIUM CHLORIDE 1,000 ML IV SCH (23:30)
[2023-10-08 02:28] VITALS: BMI 35.2
[2023-10-08] MEDS: INSULIN SLIDING SCALE (NOVOLOG) 1 VIAL SQ SCH ×4 (06:10→21:16)
[2023-10-08 08:36] LABS: EOS % 5.3 % (0-4.5); HEMATOCRIT 33.7 % (32.4-45.2); HEMOGLOBIN 11.2 GM/dL (10.7-15.3); LYMPH % 19.7 % (8-40); MCH 32.3 pg (25.7-33.7); MCHC 33.4 g/dl (32.0-36.0); MEAN CELL VOLUME 96.6 fl (80-96); MEAN PLT VOLUME 8.3 fl (7.5-11.1); MONO % 9.6 % (3.8-10.2); NEUT % 64.4 % (42.8-82.8); PLATELET COUNT 120 10^3/uL (134-434); RBC 3.48 M/mm3 (3.60-5.2); RDW 14.1 % (11.6-15.6); WHITE BLOOD COUNT 4.9 K/mm3 (4.0-10.0)
[2023-10-08 08:51] LABS: POTASSIUM 4.1 mmol/L (3.5-5.1)
[2023-10-08 08:53] LABS: CALCIUM 8.6 mg/dL (8.5-10.1)
[2023-10-08 08:54] LABS: ALBUMIN 2.9 g/dl (3.4-5.0); BLOOD UREA NITROGEN 16.9 mg/dL (7-18)
[2023-10-08 08:57] LABS: CREATININE 0.8 mg/dL (0.55-1.3)
[2023-10-08 08:58] LABS: BILIRUBIN,TOTAL 1.5 mg/dL (0.2-1)
[2023-10-08] MEDS ORDERED: ARIPiprazole 20 MG TABLET PO SCH (10:00)
[2023-10-08] MEDS: HEPARIN NA (PORCINE) 5,000 UNITS/ML 1ML VIAL SQ SCH ×2 (10:58→21:16)
[2023-10-08] MEDS: SPIRONOLACTONE 25 MG TABLET PO SCH (10:58)
[2023-10-08] MEDS: QUEtiapine FUMARATE 25 MG TABLET PO SCH (10:58)
[2023-10-08] MEDS: RIFAXIMIN 550 MG TABLET PO SCH ×2 (10:58→21:15)
[2023-10-08 19:19] LABS: N-TERMINAL BNP 182.5 pg/ml (5-125)
[2023-10-08] MEDS: ATORVASTATIN CA 20 MG TABLET (FP) PO SCH (21:15)
[2023-10-09] MEDS: SODIUM CHLORIDE 1,000 ML IV SCH (00:56)
[2023-10-09] MEDS: INSULIN SLIDING SCALE (NOVOLOG) 1 VIAL SQ SCH ×3 (06:06→16:55)
[2023-10-09] MEDS: QUEtiapine FUMARATE 25 MG TABLET PO SCH (09:16)
[2023-10-09] MEDS: SPIRONOLACTONE 25 MG TABLET PO SCH (09:16)
[2023-10-09] MEDS: HEPARIN NA (PORCINE) 5,000 UNITS/ML 1ML VIAL SQ SCH (09:16)
[2023-10-09] MEDS: RIFAXIMIN 550 MG TABLET PO SCH (09:19)
[2023-10-09] MEDS ORDERED: ARIPiprazole 10 MG TABLET PO SCH (10:00)
[2023-10-09 13:47] VITALS: PULSE 64
[2023-10-09] MEDS ORDERED: CARBIDOPA/LEVODOPA 25/100 TABLET (FP) PO SCH (14:00)
[2023-10-09 18:39] VITALS: BP 140/61; RESP 17; TEMP 98.5
== END 2023-10-09 20:59 ==
LOC: JER 11:10 → JERBED 14:04 → J4S 18:30
PROVIDERS: ADMIT Internal Medicine; ATTEND Internal Medicine
PROC: 3E023GC Introduction of Other Therapeutic Substance into Muscle, Percutaneous Approach (ICD-10-PCS; principal; 2023-10-07)
PROC: 3E013VG Introduction of Insulin into Subcutaneous Tissue, Percutaneous Approach (ICD-10-PCS; 2023-10-07)
PROC: 3E0337Z Introduction of Electrolytic and Water Balance Substance into Peripheral Vein, Percutaneous Approach (ICD-10-PCS; 2023-10-07)
DX: R55 Syncope and collapse (principal); E11.9 Type 2 diabetes mellitus without complications; W18.39XA Other fall on same level, initial encounter; Y93.89 Activity, other specified; Y92.099 Unspecified place in other non-institutional residence as the place of occurrence of the external cause; I10 Essential (primary) hypertension; D64.9 Anemia, unspecified; F03.90 Unspecified dementia, unspecified severity, without behavioral disturbance, psychotic disturbance, mood disturbance, and anxiety; K76.82 Hepatic encephalopathy; E87.6 Hypokalemia; F25.9 Schizoaffective disorder, unspecified; E78.5 Hyperlipidemia, unspecified; K21.9 Gastro-esophageal reflux disease without esophagitis; Z91.041 Radiographic dye allergy status; S09.90XA Unspecified injury of head, initial encounter; K92.9 Disease of digestive system, unspecified; Z86.718 Personal history of other venous thrombosis and embolism; F14.21 Cocaine dependence, in remission; Z91.013 Allergy to seafood; Z88.8 Allergy status to other drugs, medicaments and biological substances
CPT/HCPCS: 0241U-QW; 36415; 70450-TC; 71045-TC-FY; 72125-TC; 80053; 80061; 81003; 82550; 82962; 83036; 83735; 83880; 84443; 84484; 85025; 85610; 85730; 87086; 93005; 93010; 93306-TC; 93880-TC; 96372; 99285-25; G0378; J1644

== ENCOUNTER 2024-04-29 11:01 | Inpatient (IN) | payer MEDICARE, OTHER ==
[2024-04-29 13:53] LABS: BASO % 1.3 % (0-2.0); EOS % 2.9 % (0-4.5); HEMOGLOBIN 13.7 GM/dL (10.7-15.3); LYMPH % 21.9 % (8-40); MCH 32.9 pg (25.7-33.7); MCHC 34.3 g/dl (32.0-36.0); MEAN CELL VOLUME 95.9 fl (80-96); MEAN PLT VOLUME 8.2 fl (7.5-11.1); MONO % 8.5 % (3.8-10.2); NEUT % 65.4 % (42.8-82.8); PLATELET COUNT 147 10^3/uL (134-434); RBC 4.17 M/mm3 (3.60-5.2); RDW 16.5 % (11.6-15.6); WHITE BLOOD COUNT 5.7 K/mm3 (4.0-10.0)
[2024-04-29 13:54] LABS: EPI CELLS 4 /uL (0-25.1); HYALINE CASTS 1 /uL (0-3.1); URINE APPEARANCE TURBID; URINE BACTERIA >9,000 /uL (0-1359); URINE BILIRUBIN 1+ (NEGATIVE); URINE COLOR DK YELLOW; URINE GLUCOSE (UA) NEGATIVE (NEGATIVE); URINE KETONE 1+ (NEGATIVE); URINE LEUK ESTERASE 3+ (NEGATIVE); URINE NITRITE NEGATIVE (NEGATIVE); URINE PROTEIN 1+ (NEGATIVE); URINE RBC 42 /uL (0-23.9); URINE UROBILINOGEN 4.0 E.U/dl mg/dL (0.2-1.0); URINE WBC 5417 /uL (0-25.8); VENOUS BASE EXCESS -6.8 mmol/L (-2-2); VENOUS O2 SATURATION 68.6 % (70-80); VENOUS PCO2 54.5 mmHg (38-52); VENOUS PH 7.212 (7.310-7.410)
[2024-04-29] MEDS: LACTATED RINGERS SOLUTION 1,000 ML/1,000 ML INFUS.BAG IV SCH ×2 (13:54→15:56)
[2024-04-29 13:57] LABS: INR 1.17 (0.83-1.09); PROTHROMBIN TIME (PATIENT) 13.4 SEC (9.7-13.0)
[2024-04-29 14:00] LABS: ACTIVATED PTT 33.3 SECONDS (25.2-36.5)
[2024-04-29 14:11] LABS: POTASSIUM 3.9 mmol/L (3.5-5.1)
[2024-04-29 14:12] LABS: CALCIUM 10.2 mg/dL (8.5-10.1)
[2024-04-29 14:14] LABS: ALBUMIN 3.4 g/dl (3.4-5.0); BLOOD UREA NITROGEN 21.2 mg/dL (7-18)
[2024-04-29 14:18] LABS: BILIRUBIN,TOTAL 3.4 mg/dL (0.2-1); TOT PROT 6.9 g/dl (6.4-8.2)
[2024-04-29 14:20] LABS: LACTIC ACID 3.7 mmol/L (0.4-2.0)
[2024-04-29] MEDS ORDERED: PIPERACILLIN/TAZOB 4.5 GM 4.5 GM/100 ML BAG IVPB ONE (14:48)
[2024-04-29] MEDS: PIPERACILLIN/TAZOB 4.5 GM 4.5 GM in DEXTROSE 5%-WATER 100 ML IVPB ONE (14:55)
[2024-04-29 20:24] LABS: LACTIC ACID 3.6 mmol/L (0.4-2.0)
[2024-04-29] MEDS: SODIUM CHLORIDE 1,000 ML IV SCH (21:21)
[2024-04-29] MEDS: HEPARIN NA (PORCINE) 5,000 UNITS/ML 1ML VIAL SQ SCH (21:28)
[2024-04-29] MEDS: RIFAXIMIN 550 MG TABLET PO SCH (21:29)
[2024-04-29] MEDS: ATORVASTATIN CA 20 MG TABLET (FP) PO SCH (21:29)
[2024-04-30] MEDS: PIPERACILLIN/TAZOB 3.375 GM 3.375 GM in DEXTROSE 5%-WATER - 50 ML IVPB SCH ×2 (01:11→18:45)
[2024-04-30 10:59] LABS: BASO % 1.1 % (0-2.0); EOS % 3.5 % (0-4.5); LYMPH % 24.2 % (8-40); MCH 33.6 pg (25.7-33.7); MCHC 35.2 g/dl (32.0-36.0); MEAN CELL VOLUME 95.5 fl (80-96); MONO % 10.4 % (3.8-10.2); NEUT % 60.8 % (42.8-82.8); PLATELET COUNT 119 10^3/uL (134-434); RBC 3.56 M/mm3 (3.60-5.2); RDW 16.6 % (11.6-15.6); WHITE BLOOD COUNT 4.4 K/mm3 (4.0-10.0)
[2024-04-30 11:13] LABS: POTASSIUM 3.8 mmol/L (3.5-5.1)
[2024-04-30 11:19] LABS: BLOOD UREA NITROGEN 16.5 mg/dL (7-18); CALCIUM 9.1 mg/dL (8.5-10.1)
[2024-04-30 11:22] LABS: CREATININE 0.8 mg/dL (0.55-1.3)
[2024-04-30 11:24] LABS: ALBUMIN 2.6 g/dl (3.4-5.0); BILIRUBIN,TOTAL 2.9 mg/dL (0.2-1); TOT PROT 5.4 g/dl (6.4-8.2)
[2024-04-30 11:42] LABS: LACTIC ACID 2.8 mmol/L (0.4-2.0)
[2024-04-30] MEDS: CEFTRIAXONE 1 GM in DEXTROSE 5%-WATER - 50 ML IVPB SCH (13:22)
[2024-04-30 13:47] LABS: LACTIC ACID 3.3 mmol/L (0.4-2.0)
[2024-04-30 15:34] LABS: LACTIC ACID 3.6 mmol/L (0.4-2.0)
[2024-04-30 15:51] VITALS: BMI 28.1
[2024-04-30 17:56] LABS: LACTIC ACID 3.4 mmol/L (0.4-2.0)
[2024-04-30] MEDS ORDERED: LACTULOSE 20 GM/30 ML UDC (FOR ORAL USE ONLY) PO PRN (19:57)
[2024-05-01] MEDS: LACTULOSE 20 GM/30 ML UDC (FOR ORAL USE ONLY) PO SCH (11:21)
[2024-05-02 09:03] LABS: BASO % 0.9 % (0-2.0); EOS % 3.6 % (0-4.5); HEMATOCRIT 32.7 % (32.4-45.2); HEMOGLOBIN 11.5 GM/dL (10.7-15.3); LYMPH % 28.7 % (8-40); MCH 33.9 pg (25.7-33.7); MCHC 35.2 g/dl (32.0-36.0); MEAN CELL VOLUME 96.4 fl (80-96); MONO % 9.8 % (3.8-10.2); PLATELET COUNT 125 10^3/uL (134-434); RBC 3.39 M/mm3 (3.60-5.2); RDW 16.2 % (11.6-15.6); WHITE BLOOD COUNT 4.4 K/mm3 (4.0-10.0)
[2024-05-02 09:04] LABS: INR 1.28 (0.83-1.09); PROTHROMBIN TIME (PATIENT) 14.4 SEC (9.7-13.0)
[2024-05-02 09:15] LABS: POTASSIUM 3.6 mmol/L (3.5-5.1)
[2024-05-02 09:18] LABS: ALBUMIN 2.6 g/dl (3.4-5.0); BLOOD UREA NITROGEN 10.8 mg/dL (7-18); CALCIUM 8.6 mg/dL (8.5-10.1)
[2024-05-02 09:20] LABS: CREATININE 0.7 mg/dL (0.55-1.3)
[2024-05-02 09:23] LABS: BILIRUBIN,TOTAL 2.1 mg/dL (0.2-1); TOT PROT 5.3 g/dl (6.4-8.2)
[2024-05-02 09:28] LABS: LACTIC ACID 2.2 mmol/L (0.4-2.0)
[2024-05-02 10:40] LABS: LACTIC ACID 2.4 mmol/L (0.4-2.0)
[2024-05-02] MEDS: FAMOTIDINE 20 MG TABLET PO SCH (11:00)
[2024-05-02] MEDS: SPIRONOLACTONE 25 MG TABLET PO SCH (11:21)
[2024-05-02 11:41] LABS: LACTIC ACID 2.8 mmol/L (0.4-2.0)
[2024-05-03 08:39] VITALS: RESP 18
[2024-05-03] MEDS: FUROSEMIDE 20 MG TABLET (FP) PO SCH (09:16)
[2024-05-04 11:01] LABS: EOS % 4.5 % (0-4.5); HEMATOCRIT 35.8 % (32.4-45.2); HEMOGLOBIN 12.7 GM/dL (10.7-15.3); LYMPH % 17.5 % (8-40); MCH 33.9 pg (25.7-33.7); MCHC 35.4 g/dl (32.0-36.0); MEAN CELL VOLUME 95.7 fl (80-96); MEAN PLT VOLUME 8.4 fl (7.5-11.1); MONO % 8.4 % (3.8-10.2); NEUT % 68.6 % (42.8-82.8); PLATELET COUNT 120 10^3/uL (134-434); RBC 3.74 M/mm3 (3.60-5.2); RDW 16.5 % (11.6-15.6); WHITE BLOOD COUNT 5.6 K/mm3 (4.0-10.0)
[2024-05-04 11:26] LABS: LACTIC ACID 2.5 mmol/L (0.4-2.0)
[2024-05-04 11:54] LABS: POTASSIUM 4.3 mmol/L (3.5-5.1)
[2024-05-04 12:02] LABS: ALBUMIN 2.9 g/dl (3.4-5.0); BLOOD UREA NITROGEN 6.7 mg/dL (7-18)
[2024-05-04 12:05] LABS: CREATININE 0.7 mg/dL (0.55-1.3)
[2024-05-04 12:06] LABS: BILIRUBIN,TOTAL 2.3 mg/dL (0.2-1)
[2024-05-04] MEDS: SODIUM CHLORIDE 0.45% 1,000 ML IV SCH (18:35)
[2024-05-04] MEDS: LACTULOSE 20 GM/30 ML UDC (FOR ORAL USE ONLY) PO SCH (21:28)
[2024-05-04 23:57] VITALS: BP 127/55; PULSE 66; TEMP 98.6
[2024-05-05] MEDS ORDERED: AMINO ACIDS/PROTEIN HYDROLYS 30 ML LIQUID.PKT PO SCH (08:00)
[2024-05-05] MEDS ORDERED: MULTIVITAMINS (DAILY MVI) TABLET (FP) PO SCH (10:00)
[2024-05-05] MEDS ORDERED: ASCORBIC ACID 250 MG TABLET (FP) PO SCH (10:00)
== END 2024-05-05 02:19 | DRG 689 ==
LOC: JER 11:01 → JERBED 16:45 → J6S 18:31
PROVIDERS: ADMIT Internal Medicine; ATTEND Internal Medicine
DX: N39.0 Urinary tract infection, site not specified (principal); G92.8 Other toxic encephalopathy; E87.20 Acidosis, unspecified; C22.0 Liver cell carcinoma; K21.9 Gastro-esophageal reflux disease without esophagitis; K59.00 Constipation, unspecified; E11.9 Type 2 diabetes mellitus without complications; F03.90 Unspecified dementia, unspecified severity, without behavioral disturbance, psychotic disturbance, mood disturbance, and anxiety; D50.9 Iron deficiency anemia, unspecified; R16.0 Hepatomegaly, not elsewhere classified; E87.6 Hypokalemia; E78.5 Hyperlipidemia, unspecified; I10 Essential (primary) hypertension; I86.4 Gastric varices; K76.82 Hepatic encephalopathy; F20.9 Schizophrenia, unspecified; R79.89 Other specified abnormal findings of blood chemistry
CPT/HCPCS: 0241U-QW; 36415; 70450-TC; 71045-TC-FY; 76700-TC; 80053; 81003; 82107; 82140; 82803; 82962; 83605; 84484; 85025; 85610; 85730; 86850; 86900; 86901; 87040; 87086; 87186; 93005; 93010; 99285-25; J1644

== ENCOUNTER 2024-06-20 03:44 | Emergency (ER) | payer MEDICARE, OTHER ==
[2024-06-20 04:12] VITALS: BMI 27.4
[2024-06-20] MEDS ORDERED: LIDOCAINE PATCH REMOVAL MC SCH ×2 (04:43→22:00)
[2024-06-20] MEDS: SODIUM CHLORIDE 500 ML IV STA (04:51)
[2024-06-20 05:11] LABS: BASO % 1.1 % (0-2.0); EOS % 5.3 % (0-4.5); HEMATOCRIT 30.6 % (32.4-45.2); HEMOGLOBIN 10.8 GM/dL (10.7-15.3); LYMPH % 24.6 % (8-40); MCH 34.4 pg (25.7-33.7); MCHC 35.4 g/dl (32.0-36.0); MEAN CELL VOLUME 97.3 fl (80-96); MEAN PLT VOLUME 7.9 fl (7.5-11.1); MONO % 11.6 % (3.8-10.2); NEUT % 57.4 % (42.8-82.8); PLATELET COUNT 128 10^3/uL (134-434); RBC 3.14 M/mm3 (3.60-5.2); RDW 14.4 % (11.6-15.6); WHITE BLOOD COUNT 6.1 K/mm3 (4.0-10.0)
[2024-06-20 05:22] LABS: POTASSIUM 4.1 mmol/L (3.5-5.1)
[2024-06-20 05:26] LABS: CALCIUM 9.4 mg/dL (8.5-10.1)
[2024-06-20 05:27] LABS: ALBUMIN 2.6 g/dl (3.4-5.0); BLOOD UREA NITROGEN 11.2 mg/dL (7-18)
[2024-06-20 05:30] LABS: CREATININE 0.7 mg/dL (0.55-1.3)
[2024-06-20 05:32] LABS: BILIRUBIN,TOTAL 1.3 mg/dL (0.2-1); TOT PROT 5.7 g/dl (6.4-8.2)
[2024-06-20 07:36] VITALS: TEMP 97.9
[2024-06-20] MEDS ORDERED: LIDOCAINE 4% PATCH TP ONE (08:53)
[2024-06-20] MEDS: LIDOCAINE 4% PATCH TP SCH (09:06)
[2024-06-20 09:11] LABS: URINE APPEARANCE CLEAR; URINE BILIRUBIN NEGATIVE (NEGATIVE); URINE COLOR DK YELLOW; URINE GLUCOSE (UA) 1+ (NEGATIVE); URINE KETONE TRACE (NEGATIVE); URINE LEUK ESTERASE NEGATIVE (NEGATIVE); URINE NITRITE NEGATIVE (NEGATIVE); URINE PROTEIN TRACE (NEGATIVE)
[2024-06-20] MEDS ORDERED: LIDOCAINE 4% PATCH TP SCH (10:00)
[2024-06-20 11:53] VITALS: PULSE 75
[2024-06-20 12:26] VITALS: BP 104/49; RESP 18
== END 2024-06-20 12:29 ==
LOC: JER 03:44
PROC: 3E0337Z Introduction of Electrolytic and Water Balance Substance into Peripheral Vein, Percutaneous Approach (ICD-10-PCS; principal; 2024-06-20)
DX: R51.9 Headache, unspecified (principal); M25.511 Pain in right shoulder; W01.198A Fall on same level from slipping, tripping and stumbling with subsequent striking against other object, initial encounter; Y92.129 Unspecified place in nursing home as the place of occurrence of the external cause
CPT/HCPCS: 36415; 70450-TC; 71045-TC-FY; 72170-TC-FY; 73030-TC-RT-FY; 73560-TC-LT-FY; 80053; 81003; 82550; 84484; 85025; 86850; 86900; 86901; 87086; 93005; 93010; 96360; 99285-25

== ENCOUNTER 2024-07-27 15:38 | Inpatient (IN) | payer MEDICARE, OTHER ==
[2024-07-27 17:26] LABS: EPI CELLS 15 /uL (0-25.1); HYALINE CASTS 0 /uL (0-3.1); URINE APPEARANCE CLEAR; URINE BACTERIA 3680 /uL (0-1359); URINE BILIRUBIN NEGATIVE (NEGATIVE); URINE COLOR YELLOW; URINE GLUCOSE (UA) NEGATIVE (NEGATIVE); URINE KETONE NEGATIVE (NEGATIVE); URINE LEUK ESTERASE 3+ (NEGATIVE); URINE NITRITE NEGATIVE (NEGATIVE); URINE PROTEIN NEGATIVE (NEGATIVE); URINE RBC 25 /uL (0-23.9); URINE WBC 233 /uL (0-25.8)
[2024-07-27 17:37] LABS: BASO % 1.6 % (0-2.0); HEMATOCRIT 32.1 % (32.4-45.2); LYMPH % 28.9 % (8-40); MCH 32.8 pg (25.7-33.7); MCHC 34.3 g/dl (32.0-36.0); MEAN CELL VOLUME 95.5 fl (80-96); NEUT % 49.5 % (42.8-82.8); PLATELET COUNT 103 10^3/uL (134-434); RBC 3.36 M/mm3 (3.60-5.2); WHITE BLOOD COUNT 4.4 K/mm3 (4.0-10.0)
[2024-07-27 17:54] LABS: POTASSIUM 3.8 mmol/L (3.5-5.1)
[2024-07-27 17:55] LABS: CALCIUM 9.2 mg/dL (8.5-10.1)
[2024-07-27 17:56] LABS: ALBUMIN 2.4 g/dl (3.4-5.0); BLOOD UREA NITROGEN 6.3 mg/dL (7-18)
[2024-07-27 17:59] LABS: CREATININE 0.6 mg/dL (0.55-1.3)
[2024-07-27 18:01] LABS: BILIRUBIN,TOTAL 1.7 mg/dL (0.2-1); TOT PROT 5.2 g/dl (6.4-8.2)
[2024-07-27 18:04] LABS: N-TERMINAL BNP 225.4 pg/ml (5-125)
[2024-07-27 18:34] LABS: ERYTHROCYTE SEDIMENTATION RATE 26 mm/hr (0-30)
[2024-07-27] MEDS ORDERED: CEFTRIAXONE 1 GM/50 ML BAG ONE (18:34)
[2024-07-27] MEDS: CEFTRIAXONE 1 GM in DEXTROSE 5%-WATER - 100 ML IVPB ONE (18:35)
[2024-07-27] MEDS: INSULIN ASPART SLIDING SCALE (NOVOLOG) 1 VIAL SQ SCH (23:21)
[2024-07-28 05:14] LABS: MAGNESIUM 1.8 mg/dL (1.8-2.4)
[2024-07-28] MEDS: ENOXAPARIN NA (PORCINE) 40 MG/0.4 ML DISP.SYRIN SQ SCH (11:10)
[2024-07-28 12:27] LABS: BASO % 1.2 % (0-2.0); EOS % 6.2 % (0-4.5); HEMATOCRIT 33.4 % (32.4-45.2); HEMOGLOBIN 11.9 GM/dL (10.7-15.3); LYMPH % 21.8 % (8-40); MCH 33.6 pg (25.7-33.7); MCHC 35.6 g/dl (32.0-36.0); MEAN CELL VOLUME 94.4 fl (80-96); MEAN PLT VOLUME 7.9 fl (7.5-11.1); MONO % 9.4 % (3.8-10.2); NEUT % 61.4 % (42.8-82.8); PLATELET COUNT 112 10^3/uL (134-434); RBC 3.54 M/mm3 (3.60-5.2); WHITE BLOOD COUNT 4.1 K/mm3 (4.0-10.0)
[2024-07-28 12:33] LABS: POTASSIUM 3.7 mmol/L (3.5-5.1)
[2024-07-28 12:36] LABS: ALBUMIN 2.7 g/dl (3.4-5.0); BLOOD UREA NITROGEN 7.1 mg/dL (7-18); CALCIUM 9.3 mg/dL (8.5-10.1); MAGNESIUM 1.9 mg/dL (1.8-2.4)
[2024-07-28 12:39] LABS: CREATININE 0.7 mg/dL (0.55-1.3)
[2024-07-28 12:40] LABS: BILIRUBIN,TOTAL 2.1 mg/dL (0.2-1); PHOSPHOROUS 2.7 mg/dL (2.5-4.9); TOT PROT 5.8 g/dl (6.4-8.2)
[2024-07-28] MEDS ORDERED: LACTULOSE 20 GM/30 ML UDC (FOR ORAL USE ONLY) PO SCH ×4 (14:00→16:29)
[2024-07-28] MEDS: RIFAXIMIN 550 MG TABLET PO SCH (16:54)
[2024-07-28] MEDS: FUROSEMIDE 40 MG TABLET (FP) PO SCH (16:54)
[2024-07-28] MEDS: CEFTRIAXONE 1 GM in DEXTROSE 5%-WATER - 50 ML IVPB SCH (17:06)
[2024-07-28 21:37] VITALS: RESP 18
[2024-07-28] MEDS: ATORVASTATIN CA 20 MG TABLET (FP) PO SCH (22:24)
[2024-07-28] MEDS: LACTULOSE 20 GM/30 ML UDC (FOR ORAL USE ONLY) PO SCH (22:24)
[2024-07-28] MEDS: SPIRONOLACTONE 25 MG TABLET PO SCH (22:24)
[2024-07-29 09:56] LABS: HEMATOCRIT 33.9 % (32.4-45.2); HEMOGLOBIN 11.7 GM/dL (10.7-15.3); MCH 32.7 pg (25.7-33.7); MCHC 34.5 g/dl (32.0-36.0); MEAN CELL VOLUME 94.8 fl (80-96); MEAN PLT VOLUME 8.4 fl (7.5-11.1); PLATELET COUNT 114 10^3/uL (134-434); RBC 3.57 M/mm3 (3.60-5.2); RDW 13.9 % (11.6-15.6)
[2024-07-29 10:15] LABS: POTASSIUM 3.8 mmol/L (3.5-5.1)
[2024-07-29 10:18] LABS: CALCIUM 9.8 mg/dL (8.5-10.1)
[2024-07-29 10:19] LABS: ALBUMIN 2.7 g/dl (3.4-5.0); BLOOD UREA NITROGEN 6.8 mg/dL (7-18)
[2024-07-29 10:22] LABS: CREATININE 0.8 mg/dL (0.55-1.3); PHOSPHOROUS 2.7 mg/dL (2.5-4.9)
[2024-07-29 10:23] LABS: BILIRUBIN,TOTAL 2.4 mg/dL (0.2-1); TOT PROT 5.8 g/dl (6.4-8.2)
[2024-07-29 10:38] VITALS: BMI 32.3
[2024-07-29] MEDS: ASCORBIC ACID 250 MG TABLET (FP) PO SCH (15:06)
[2024-07-29] MEDS: MULTIVITAMINS (DAILY MVI) TABLET (FP) PO SCH (15:06)
[2024-07-29 23:07] VITALS: BP 121/60; PULSE 75; TEMP 99.3
== END 2024-07-29 22:55 | DRG 690 ==
LOC: JER 15:38 → JERBED 22:39 → J6S 07-28 02:40
PROVIDERS: ADMIT Internal Medicine; ATTEND Internal Medicine
DX: N39.0 Urinary tract infection, site not specified (principal); C22.0 Liver cell carcinoma; K74.60 Unspecified cirrhosis of liver; I10 Essential (primary) hypertension; D69.59 Other secondary thrombocytopenia; E11.9 Type 2 diabetes mellitus without complications; F20.9 Schizophrenia, unspecified; E78.5 Hyperlipidemia, unspecified; F03.90 Unspecified dementia, unspecified severity, without behavioral disturbance, psychotic disturbance, mood disturbance, and anxiety; D64.9 Anemia, unspecified; E88.09 Other disorders of plasma-protein metabolism, not elsewhere classified
CPT/HCPCS: 36415; 70450-TC; 71045-TC-FY; 80053; 80061; 81003; 82140; 82728; 82962; 83540; 83550; 83735; 83880; 84100; 84443; 84466; 85025; 85027; 85651; 86140; 86705; 87086; 87186; 87340; 87517; 87902; 93005; 93010; 93306-TC; 93970-TC; 99285-25